=== PATIENT | male | born 1970 | race Caucasian/White ===

== ENCOUNTER 2021-12-24 00:59 | Emergency (ER) | payer SELFPAY ==
[~2021-12-24] VITALS: Ht 170.2 cm; Wt 90.9 kg
[2021-12-24 01:01] VITALS: BP 125/77
--- NOTE | 2021-12-24 01:03 | PHYS DOC ---
Past History Past Medical History: No Pertinent History Past Surgical History: No Surgical History Alcohol Use: None Drug Use: Marijuana General Adult EDM: Chief Complaint: SKIN RASH/ABSCESS HPI: HPI: ".. I got this infection in my rt. upper leg.. it been coming on the last 4 days..." Patient is a 51 year old male who presents with above hx and complaints of Rt. thigh pain. Pt. has area of cellulitis and a small area of fluctuant abscess right groin. Does have adenopathy at the site. There is inflammation through the crease of the right groin. Patient denies any history immunosuppression no recent travel. No specific ill contacts. Patient has had a history of dental abscesses in the past. Patient has not follow-up primary care. Patient does not remember his last tetanus shot. Review of Systems: Review of Systems: Constitutional: Denies fever or chills Eyes: Denies change in visual acuity HENT: Denies nasal congestion or sore throat Respiratory: Denies cough or shortness of breath Cardiovascular: Denies chest pain or edema GI: Denies abdominal pain, nausea, vomiting, bloody stools or diarrhea : Denies dysuria Musculoskeletal: Denies back pain or joint pain Integument: Complains of right upper thigh cellulitis and inflammation-possible abscess Neurologic: Denies headache, focal weakness or sensory changes Endocrine: Denies polyuria or polydipsia Lymphatic: Denies swollen glands Psychiatric: Denies depression or anxiety Family History: Family History: Noncontributory to presentation Current Medications: Current Meds: See nursing for home meds Allergies: Allergies: No known drug allergies Physical Exam: PE: Constitutional: Moderate acute distress, non-toxic appearance. [] HENT: Normocephalic, atraumatic, bilateral external ears normal, oropharynx moist, no oral exudates, nose normal. Very poor dentition Eyes: PERRLA, EOMI, conjunctiva normal, no discharge. Glasses Neck: Normal range of motion, no tenderness, supple, no stridor. [] Cardiovascular:Heart rate regular rhythm, no murmur [] Lungs & Thorax: Bilateral breath sounds clear to auscultation [] Abdomen: Bowel sounds normal, soft, no tenderness, no masses, no pulsatile masses. Mild distention Skin: Warm, dry, no erythema, no rash. Cellulitis right groin and thigh Back: No tenderness, no CVA tenderness. [] Extremities: Right groin tenderness and adenopathy, no cyanosis, no clubbing, ROM intact, no edema. [] Neurologic: Alert and oriented X 3, moves all extremities on request probably has distal sensory,, no focal deficits noted. [] Psychologic: Affect anxious, judgement normal, mood normal. [] EKG: EKG: [] Radiology/Procedures: Radiology/Procedures: [] Heart Score: C/O Chest Pain: N/A Risk Factors: Risk Factors: DM, Current or recent (<one month) smoker, HTN, HLP, family history of CAD, obesity. Risk Scores: Score 0 - 3: 2.5% MACE over next 6 weeks - Discharge Home Score 4 - 6: 20.3% MACE over next 6 weeks - Admit for Clinical Observation Score 7 - 10: 72.7% MACE over next 6 weeks - Early Invasive Strategies Course & Med Decision Making: Course & Med Decision Making Pertinent Labs and Imaging studies reviewed. (See chart for details) Procedure note-incision and drainage-right groin cellulitis and small abscess area prepped with Betadine. Used 11 blade one stick to fluctuant area which resulted in drainage a very small amount of pus. Patient use warm problem presses of salt water or Epson salts four times a day. And massage area Polysporin. Patient is to take Bactrim DS twice a day. Patient follow-up primary care. Patient is tetanus was updated. Return if any concerns. Impression: 1. Right thigh and groin cellulitis and abscess 2. Tobacco use [] Dragon Disclaimer: Dragon Disclaimer: This electronic medical record was generated, in whole or in part, using a voice recognition dictation system. Departure Departure: Referrals: PCP,UNKNOWN (PCP) Scripts Sulfamethoxazole/Trimethoprim (BACTRIM DS TABLET) 1 Each Tablet 1 TAB PO BID for cellulitis for 10 Days, #20 TAB 0 Refills Prov: GAVIN JAIME MD 12/24/21 [place] Disclaimer This chart was dictated in whole or in part using Voice Recognition software in a busy, high-work load, and often noisy Emergency Department environment. It may contain unintended and wholly unrecognized errors or omissions. GAVIN JAIME MD Dec 24, 2021 01:03
[2021-12-24] MEDS ORDERED: SULF1TAB24 PO (01:18)
[2021-12-24] MEDS ORDERED: HYDROcodon/IBUPROFEN 7.5/200MG 1 TAB TABLET PO ONE (01:45)
[2021-12-24] MEDS ORDERED: cefTRIAXone IM 1 GM VIAL IM ONE (01:45)
[2021-12-24] MEDS ORDERED: SMZ/TMP 800/160MG TABLET. PO ONE (01:45)
[2021-12-24] MEDS ORDERED: DIPHTH,PERTUSS(ACELL),TET TOX 0.5 ML DISP.SYRIN. VAX IM ONE (01:45)
== END 2021-12-24 01:43 | disposition home or self-care (01) ==
LOC: ER 00:59
DX: L02.214 Cutaneous abscess of groin (principal); L02.415 Cutaneous abscess of right lower limb; L03.115 Cellulitis of right lower limb; L03.314 Cellulitis of groin; Z72.0 Tobacco use
CPT/HCPCS: 10060; 90471; 90715; 96372; 99284; J0696